=== PATIENT | male | born 1995 | race Caucasian/White ===

== ENCOUNTER 2018-07-10 05:53 | Day surgery (SDC) | payer OTHER ==
[2018-07-10] MEDS: LR 1,000 ML IV (06:35)
[2018-07-10] MEDS ORDERED: MIDAZOLAM INJ 2 MG/2 ML VIAL (J2250) As Ordered (07:18)
[2018-07-10] MEDS ORDERED: fentaNYL 250 MCG/5 ML INJECTION (J3010) As Ordered (07:18)
[2018-07-10] MEDS ORDERED: PROPOFOL 200 MG/20 ML VIAL As Ordered (07:18)
[2018-07-10] MEDS ORDERED: LIDOCAINE 2% INJ 100 MG/5 ML SDV (FOR ANES.) As Ordered (07:18)
[2018-07-10] MEDS ORDERED: ROCURONIUM BROMIDE 50 MG/5 ML VIAL As Ordered ×2 (07:18→07:58)
[2018-07-10] MEDS ORDERED: dexameTHASONE 4 MG/ML 1ML VIAL (J1100) As Ordered ×2 (07:45)
[2018-07-10] MEDS ORDERED: HYDROmorphone HCL 2 MG/ML 1ML VIAL (J1170) As Ordered (07:51)
[2018-07-10] MEDS ORDERED: SUGAMMADEX SODIUM 500 MG/5 ML VIAL (BRIDION) As Ordered (07:59)
[2018-07-10] MEDS ORDERED: ONDANSETRON 4MG/2ML VIAL (J2405) As Ordered (08:00)
[2018-07-10] MEDS: METHYLENE BLUE 0.5% (5MG/ML) 10 ML AMP (PROVAYBLUE)(Q9968 PER 1MG) As Ordered (08:29)
[2018-07-10] MEDS: EPINEPHrine 1MG/ML INJ 30ML MD-VIAL As Ordered (08:29)
[2018-07-10] MEDS: LIDOCAINE W/EPINEPHRINE 1% 20ML VIAL As Ordered (08:45)
[2018-07-10] MEDS ORDERED: ONDANSETRON 4MG/2ML VIAL (J2405) IV (10:00)
[2018-07-10] MEDS ORDERED: HYDROMORPHONE HCL 0.5 MG/ 0.5 ML SYRINGE (J1170 PER 1) IV (10:00)
[2018-07-10] MEDS ORDERED: ACETAMINOPHEN/CODEINE 300MG/30MG 12.5 ML UDC PO (10:00)
[2018-07-10] MEDS ORDERED: fentaNYL 100 MCG/2 ML INJECTION (J3010) IV (10:00)
[2018-07-10] MEDS ORDERED: LR 1,000 ML IV ×2 (10:00)
[2018-07-10] MEDS: PERCOCET 5MG/325MG TAB PO ×2 (10:30→11:16)
[2018-07-10] MEDS ORDERED: PERCOCET 5MG/325MG TAB As Ordered (11:17)
== END 2018-07-10 13:32 | disposition home or self-care (01) ==
LOC: M SDC 05:53
DX: J34.2 Deviated nasal septum (principal); J31.0 Chronic rhinitis; G47.9 Sleep disorder, unspecified; Z72.0 Tobacco use
CPT/HCPCS: 30520

== ENCOUNTER 2019-06-22 02:25 | Emergency (ER) | payer OTHER ==
[~2019-06-22] VITALS: Ht 182.9 cm; Wt 78.2 kg
[2019-06-22 02:25] VITALS: BP 148/59
[~2019-06-22 02:25] MED LIST: CETI10TA
[2019-06-22] MEDS ORDERED: TETRACAINE 0.5% OPHTH SOLN 4ML OU ONE (03:00)
[2019-06-22] MEDS ORDERED: prednisoLONE ACET 1% OPHTH SUSP 5ML OU ONE (03:15)
== END 2019-06-22 03:10 | disposition home or self-care (01) ==
LOC: M ED 02:25
DX: T59.894A Toxic effect of other specified gases, fumes and vapors, undetermined, initial encounter (principal); H10.219 Acute toxic conjunctivitis, unspecified eye